=== PATIENT | female | born 1975 | race Native Hawaiian/Other Pacific Islander ===

== ENCOUNTER → 2017-12-19 | Outpatient (CLI) | payer SELFPAY ==
[~2017-12-19] MED LIST: CRUTCH USE; NAPR550 PO; OXYACE5T PO; RXNAPNA550 PO
== END | disposition home or self-care (01) ==
LOC: LAB EV 18:17 → LAB SHORT 18:17
DX: J02.9 Acute pharyngitis, unspecified (principal)
CPT/HCPCS: 87070; 87147

== ENCOUNTER → 2020-09-14 | Outpatient (CLI) | payer SELFPAY | END | disposition home or self-care (01) | LOC: LAB SHORT 17:38 | DX: J02.9 Acute pharyngitis, unspecified (principal) | CPT/HCPCS: 87081 ==

== ENCOUNTER → 2021-04-16 | Outpatient (CLI) | payer SELFPAY ==
[2021-04-18 16:11] LABS: HPV 16 Negative (Negative); HPV 18 Negative (Negative); HPV OTHER HR TYPES Negative (Negative)
== END | disposition home or self-care (01) ==
LOC: LAB SHORT 12:26
PROVIDERS: Family Medicine
DX: Z01.419 Encounter for gynecological examination (general) (routine) without abnormal findings (principal)
CPT/HCPCS: 87624; G0123

== ENCOUNTER → 2021-05-24 | Outpatient (CLI) | payer OTHER | END | disposition home or self-care (01) | LOC: LAB SHORT 07:47 → PLD 07:47 | DX: N87.9 Dysplasia of cervix uteri, unspecified (principal) | CPT/HCPCS: 88305 ==

== ENCOUNTER 2021-10-11 20:26 | Emergency (ER) | payer OTHER ==
[~2021-10-11] VITALS: Ht 160 cm; Wt 90.7 kg
[2021-10-11] MEDS ORDERED: CRUTCH4 XX (21:48)
== END 2021-10-11 22:04 | disposition home or self-care (01) ==
LOC: ER 20:26
DX: S93.602A Unspecified sprain of left foot, initial encounter (principal); S93.402A Sprain of unspecified ligament of left ankle, initial encounter; W18.42XA Slipping, tripping and stumbling without falling due to stepping into hole or opening, initial encounter; Z88.1 Allergy status to other antibiotic agents
CPT/HCPCS: 29515; 73630; 99283-25; A9270

== ENCOUNTER → 2023-07-28 | Outpatient (CLI) | payer BC ==
[~2023-07-28] MED LIST changes: +CRUTCH4 XX
== END ==
LOC: LAB 15:19 → LAB SHORT 15:19
DX: R35.0 Frequency of micturition (principal)
CPT/HCPCS: 87086

== ENCOUNTER → 2024-01-16 | Outpatient (CLI) | payer BC | END | disposition home or self-care (01) | LOC: LAB 12:42 → LAB SHORT 12:42 | DX: N39.0 Urinary tract infection, site not specified (principal) | CPT/HCPCS: 87086 ==

== ENCOUNTER 2024-03-15 07:16 | Day surgery (SDC) | payer BC ==
[~2024-03-15] VITALS: Ht 160 cm; Wt 91.7 kg
[~2024-03-15 07:16] MED LIST changes: +Lidocaine 1%-Epineph 1:100000 20 ML MDV ONE; +NS 500 ML IV ONE
[2024-03-15] MEDS ORDERED: Cyclobenzaprine5 MG (07:38)
[2024-03-15] MEDS ORDERED: NS 500 ML IV ONE (07:53)
--- NOTE | 2024-03-15 07:53 | NUR ---
03/15/24 0753 Natalia Vincent TIME OUT AT 0750, RIGHT 7CC, LEFT 8CC
[2024-03-15] MEDS ORDERED: Midazolam HCl 1MG / ML 2ML Vial ONE (08:10)
[2024-03-15 08:36] VITALS: BP 116/80
== END 2024-03-15 08:46 | disposition home or self-care (01) ==
LOC: ORSCSDS 07:16
PROVIDERS: Orthopaedic Surgery
PROC: 01N54ZZ Release Median Nerve, Percutaneous Endoscopic Approach (ICD-10-PCS; principal; 2024-03-15 08:30)
DX: G56.03 Carpal tunnel syndrome, bilateral upper limbs (principal); E66.01 Morbid (severe) obesity due to excess calories; Z68.35 Body mass index [BMI] 35.0-35.9, adult; F17.210 Nicotine dependence, cigarettes, uncomplicated
CPT/HCPCS: J2250; J7040

== ENCOUNTER → 2025-03-29 | Outpatient (CLI) | payer OTHER ==
[~2025-03-29] MED LIST changes: +Cyclobenzaprine5 MG; -Lidocaine 1%-Epineph 1:100000 20 ML MDV ONE; -NS 500 ML IV ONE
== END ==
LOC: LAB SHORT 14:17 → LAB 14:17
PROVIDERS: Family Medicine
DX: Z01.419 Encounter for gynecological examination (general) (routine) without abnormal findings (principal)
CPT/HCPCS: 87624; G0145